=== PATIENT | female | born 1980 | race Caucasian/White ===

== ENCOUNTER → 2021-10-04 | Outpatient (CLI) | payer BC ==
--- NOTE | 2021-10-04 07:49 | US ---
EXAMINATION TYPE: US gallbladder DATE OF EXAM: 10/04/2021 COMPARISON: NONE CLINICAL HISTORY: R10.11 RUQ pain. RUQ pain and mild nausea EXAM MEASUREMENTS: Liver Length: 14.6 cm Gallbladder Wall: 0.2 cm CBD: 0.6 cm Right Kidney: 9.4 x 4.6 x 5.7 cm Pancreas: wnl Liver: wnl Gallbladder: fold seen, 1.3cm neck fold seen that moved slightly when rolled LLD Evidence for sonographic Alford's sign: no CBD: wnl Right Kidney: wnl IMPRESSION: No significant abnormality seen.
== END | disposition home or self-care (01) ==
LOC: RADUSWWP 07:05
PROVIDERS: ATTEND Internal Medicine Gastroenterology
DX: R10.11 Right upper quadrant pain (principal); R11.0 Nausea
CPT/HCPCS: 76705

== ENCOUNTER 2021-10-30 01:57 | Emergency (ER) | payer BC ==
[2021-10-30 02:02] VITALS: BP 124/65; PULSE 84; RESP 22; TEMP 97.6
[2021-10-30] MEDS ORDERED: HYDROmorphone 0.5 MG/0.5 ML SYRINGE IVP STA (02:19)
[2021-10-30] MEDS ORDERED: ONDANSETRON 4 MG/2 ML VIAL IVP STA (02:19)
[2021-10-30] MEDS ORDERED: SODIUM CHLORIDE 0.9% 1,000 ML IV STA (02:19)
[2021-10-30 03:06] LABS: Basophils % (A) 0 %; Eosinophils # (A) 0.1 k/uL (0-0.7); Eosinophils % (A) 2 %; HCT 39.6 % (34.0-46.0); HGB 13.3 gm/dL (11.4-16.0); Lymphocytes # (A) 1.8 k/uL (1.0-4.8); Lymphocytes % (A) 31 %; MCH 31.7 pg (25.0-35.0); MCHC 33.7 g/dL (31.0-37.0); Monocytes # (A) 0.4 k/uL (0-1.0); Monocytes % (A) 6 %; Neutrophils # (A) 3.3 k/uL (1.3-7.7); Neutrophils % (A) 57 %; Platelet Count 361 k/uL (150-450); RBC 4.21 m/uL (3.80-5.40); WBC 5.9 k/uL (3.8-10.6)
[2021-10-30 03:16] LABS: Potassium 3.7 mmol/L (3.5-5.1)
[2021-10-30 03:17] LABS: ALT 26 U/L (4-34); AST 26 U/L (14-36); African American GFR (CKD) >90 (>60 ml/min/1.73 sqM); Albumin 3.9 g/dL (3.5-5.0); Alkaline Phosphatase 85 U/L (38-126); Anion Gap 7 mmol/L; Blood Urea Nitrogen 18 mg/dL (7-17); Calcium 8.5 mg/dL (8.4-10.2); Carbon Dioxide 27 mmol/L (22-30); Chloride 105 mmol/L (98-107); Glucose 95 mg/dL (74-99); Lipase 143 U/L (23-300); Non-African American GFR(CKD) >90 (>60 ml/min/1.73 sqM); Sodium 139 mmol/L (137-145); Total Bilirubin 0.4 mg/dL (0.2-1.3)
[2021-10-30 03:21] LABS: Appearance,Urine Cloudy (Clear); Bilirubin,Urine Negative (Negative); Blood,Urine Large (Negative); Color,Urine Red; Glucose,Urine (UA) Negative (Negative); Ketones,Urine Trace (Negative); Leukocyte Esterase,Urine Small (Negative); Mucus,Urine Rare /hpf; Nitrite,Urine Negative (Negative); PH, Urine 6.5 (5.0-8.0); Protein,Urine 1+ (Negative); RBC,Urine >182 /hpf (0-5); Specific Gravity,Urine 1.025 (1.001-1.035); Squamous Epithelial Cell,Urine 6 /hpf (0-4); Urobilinogen,Urine <2.0 mg/dL (<2.0); WBC,Urine 23 /hpf (0-5)
[2021-10-30] MEDS ORDERED: ONDANSETRON 4 MG ODT STARTER PACK 2 TAB BTL PO STA (03:50)
[2021-10-30] MEDS ORDERED: IBUPROFEN 600 MG STARTER PACK 4 TAB BTL PO STA (03:50)
--- NOTE | 2021-10-30 03:56 | ED ---
General Adult HPI - General Chief complaint: Abdominal Pain Stated complaint: Abd Pain Time Seen by Provider: 10/30/21 02:11 Source: patient, RN notes reviewed Mode of arrival: ambulatory Limitations: no limitations - History of Present Illness Initial comments: 41-year-old female presents to the emergency Department with complaints of right upper quadrant pain. Patient states she has known gallbladder disease and is anxiously awaiting an appointment with her surgeon. States she had an ultrasound earlier this month showing an gallstone in the neck of the gallbladder. Reports adhering to a bland diet in effort to minimize aggravating factors. States she is taking her regular home medications as prescribed. Patient states she had a "gallbladder attack" this past in which she was miserable throughout the day, however, she was able to manage this discomfort at home. States the pain was more persistent and severe today so she came to the ER this evening. Reports mild nausea. Denies fever, chills, headache, chest pain, shortness of breath, difficulty breathing, constipation, diarrhea, and dysuria. Currently on her menstrual period. - Related Data Home Medications Medication Instructions Recorded Confirmed ALPRAZolam [Xanax] 0.25 mg PO TID PRN 10/09/21 10/09/21 Cholecalciferol [Vitamin D3 (25 25 mcg PO DIRECTED 10/09/21 10/09/21 Mcg = 1000 Iu)] Dextroamphetamine/Amphetamine 20 mg PO DAILY 10/09/21 10/09/21 [Adderall] Pantoprazole [Protonix] 40 mg PO AC-BID 10/09/21 10/09/21 Previous Rx's Medication Instructions Recorded Ibuprofen [Motrin] 600 mg PO Q8HR PRN #20 tab 10/30/21 Ondansetron Odt [Zofran Odt] 4 mg PO Q8HR PRN #10 tab 10/30/21 Allergies Allergy/AdvReac Type Severity Reaction Status Date / Time Penicillins Allergy Unknown siblings Verified 10/30/21 02:02 had severe anaphylactic reactions. Review of Systems ROS Statement: Those systems with pertinent positive or pertinent negative responses have been documented in the HPI. ROS Other: All systems not noted in ROS Statement are negative. Past Medical History Past Medical History: GERD/Reflux Additional Past Medical History / Comment(s): gallstones History of Any Multi-Drug Resistant Organisms: None Reported Past Surgical History: No Surgical Hx Reported Additional Past Surgical History / Comment(s): wisdom teeth Past Anesthesia/Blood Transfusion Reactions: Motion Sickness Additional Past Anesthesia/Blood Transfusion Reaction / Comment(s): no anesth esia hx Past Psychological History: ADD/ADHD, Anxiety Smoking Status: Former smoker Past Alcohol Use History: Occasional Past Drug Use History: None Reported - Past Family History Mother Family Medical History: No Reported History General Exam Limitations: no limitations General appearance: alert, anxious, other (Well-developed, well-nourished female complaining of moderate amount of discomfort. Initial temperature 97.6, pulse 84, respirations 22, blood pressure 124/65, pulse ox 100% on room air.) ENT exam: Present: mucous membranes moist Respiratory exam: Present: normal lung sounds bilaterally. Absent: respiratory distress, wheezes, rales, rhonchi, stridor Cardiovascular Exam: Present: regular rate, normal rhythm, normal heart sounds. Absent: systolic murmur, diastolic murmur, rubs, gallop, clicks GI/Abdominal exam: Present: soft, tenderness (epigastric and RUQ pain), normal bowel sounds. Absent: distended, guarding, rebound, rigid Back exam: Absent: CVA tenderness (R), CVA tenderness (L) Neurological exam: Present: alert, oriented X3 Psychiatric exam: Present: anxious Skin exam: Present: warm, dry, intact, normal color Course Vital Signs 10/30/21 01:58 Temperature 97.6 F Pulse Rate 84 Respiratory 22 Rate Blood Pressure 124/65 O2 Sat by Pulse 100 Oximetry - Reevaluation(s) Reevaluation #1: 10/30/21 03:30 Upon reevaluation, patient is resting more comfortably. States pain is minimal and nausea has resolved. Discussed discharge home to follow up with surgeon. Patient is frustrated with this process explaining that she does not want to leave until something more definitive is done to expedite the process of seeing the surgeon. I did explain that based on laboratory studies, patient is not a candidate for hospital admission. Instructed her to call her surgeon in the morning and explain her situation. Also suggested that she contact her GI doctor to see if they would be willing to facilitate this process. Patient is reluctantly agreeable with this plan. Medical Decision Making - Medical Decision Making 41-year-old female with a past medical history of ADHD and recent diagnosis of gallbladder disease presents to the emergency department for evaluation of epigastric and right upper quadrant pain. Upon exam, patient is nontoxic in appearance. She complains of right upper quadrant pain upon palpation of the abdomen is soft. She endorses nausea, but is not vomiting at this time. She reports adherence with bland diet and is frustrated by this exacerbation of pain. Laboratory studies were obtained and are unremarkable. Patient was given a liter of fluids, pain medication, and nausea medicine with improvement. We did discuss appropriate follow-up care. She will be discharged home with Syd and Graciela. Patient is frustrated by what she perceives as difficulty obtaining timely appointment with the surgeon. Suggested additional method by which to possibly expedite this process. Patient verbalizes understanding and reluctantly agrees with this plan. Attending: James. - Lab Data Result diagrams: 10/30/21 02:47 10/30/21 02:47 Lab Results 10/30/21 10/30/21 10/30/21 Range/Units 02:47 02:47 02:47 WBC 5.9 (3.8-10.6) k/uL RBC 4.21 (3.80-5.40) m/uL Hgb 13.3 (11.4-16.0) gm/dL Hct 39.6 (34.0-46.0) % MCV 94.0 (80.0-100.0) fL MCH 31.7 (25.0-35.0) pg MCHC 33.7 (31.0-37.0) g/dL RDW 13.0 (11.5-15.5) % Plt Count 361 (150-450) k/uL MPV 7.0 Neutrophils % 57 % Lymphocytes % 31 % Monocytes % 6 % Eosinophils % 2 % Basophils % 0 % Neutrophils # 3.3 (1.3-7.7) k/uL Lymphocytes # 1.8 (1.0-4.8) k/uL Monocytes # 0.4 (0-1.0) k/uL Eosinophils # 0.1 (0-0.7) k/uL Basophils # 0.0 (0-0.2) k/uL Sodium 139 (137-145) mmol/L Potassium 3.7 (3.5-5.1) mmol/L Chloride 105 (98-107) mmol/L Carbon Dioxide 27 (22-30) mmol/L Anion Gap 7 mmol/L BUN 18 H (7-17) mg/dL Creatinine 0.79 (0.52-1.04) mg/dL Est GFR (CKD-EPI)AfAm >90 (>60 ml/min/1.73 sqM) Est GFR (CKD-EPI)NonAf >90 (>60 ml/min/1.73 sqM) Glucose 95 (74-99) mg/dL Plasma Lactic Acid [place] (0.7-2.0) mmol/L Calcium 8.5 (8.4-10.2) mg/dL Total Bilirubin 0.4 (0.2-1.3) mg/dL AST 26 (14-36) U/L ALT 26 (4-34) U/L Alkaline Phosphatase 85 (38-126) U/L Total Protein 7.0 (6.3-8.2) g/dL Albumin 3.9 (3.5-5.0) g/dL Lipase 143 (23-300) U/L Urine Color Red Urine Appearance Cloudy H (Clear) Urine pH 6.5 (5.0-8.0) Ur Specific [place] 1.025 (1.001-1.035) Urine Protein 1+ H (Negative) Urine Glucose (UA) Negative (Negative) Urine Ketones Trace H (Negative) Urine Blood Large H (Negative) Urine Nitrite Negative (Negative) Urine Bilirubin Negative (Negative) Urine Urobilinogen <2.0 (<2.0) mg/dL Ur Leukocyte Esterase Small H (Negative) Urine RBC >182 H (0-5) /hpf Urine WBC 23 H (0-5) /hpf Ur Squamous Epith Cells 6 H (0-4) /hpf Urine Mucus Rare H (None) /hpf Urine HCG, Qual (Not Detectd) 10/30/21 10/30/21 Range/Units 02:47 02:47 WBC (3.8-10.6) k/uL RBC (3.80-5.40) m/uL Hgb (11.4-16.0) gm/dL Hct (34.0-46.0) % MCV (80.0-100.0) fL MCH (25.0-35.0) pg MCHC (31.0-37.0) g/dL RDW (11.5-15.5) % Plt Count (150-450) k/uL MPV Neutrophils % % Lymphocytes % % Monocytes % % Eosinophils % % Basophils % % Neutrophils # (1.3-7.7) k/uL Lymphocytes # (1.0-4.8) k/uL Monocytes # (0-1.0) k/uL Eosinophils # (0-0.7) k/uL Basophils # (0-0.2) k/uL Sodium (137-145) mmol/L Potassium (3.5-5.1) mmol/L Chloride (98-107) mmol/L Carbon Dioxide (22-30) mmol/L Anion Gap mmol/L BUN (7-17) mg/dL Creatinine (0.52-1.04) mg/dL Est GFR (CKD-EPI)AfAm (>60 ml/min/1.73 sqM) Est GFR (CKD-EPI)NonAf (>60 ml/min/1.73 sqM) Glucose (74-99) mg/dL Plasma Lactic Acid [place] 1.3 (0.7-2.0) mmol/L Calcium (8.4-10.2) mg/dL Total Bilirubin (0.2-1.3) mg/dL AST (14-36) U/L ALT (4-34) U/L Alkaline Phosphatase (38-126) U/L Total Protein (6.3-8.2) g/dL Albumin (3.5-5.0) g/dL Lipase (23-300) U/L Urine Color Urine Appearance (Clear) Urine pH (5.0-8.0) Ur Specific [place] (1.001-1.035) Urine Protein (Negative) Urine Glucose (UA) (Negative) Urine Ketones (Negative) Urine Blood (Negative) Urine Nitrite (Negative) Urine Bilirubin (Negative) Urine Urobilinogen (<2.0) mg/dL Ur Leukocyte Esterase (Negative) Urine RBC (0-5) /hpf Urine WBC (0-5) /hpf Ur Squamous Epith Cells (0-4) /hpf Urine Mucus (None) /hpf Urine HCG, Qual Not Detected (Not Detectd) Disposition Clinical Impression: Abdominal pain, Nausea Disposition: HOME SELF-CARE Condition: Stable Instructions (If sedation given, give patient instructions): Acute Nausea and Vomiting (ED), Abdominal Pain (ED) Additional Instructions: Take Zofran for nausea. Motrin for discomfort. Call your surgeon first thing in the morning to request an expedited a ppointment. If you do not hear back from your surgeon's office, contact Dr. Youngblood's office to help facilitate. Continue to avoid fatty, greasy, and spicy foods. Return to the emergency department with any new, worsening, or concerning symptoms. Prescriptions: Ibuprofen [Motrin] 600 mg PO Q8HR PRN #20 tab PRN Reason: Pain Ondansetron Odt [Zofran Odt] 4 mg PO Q8HR PRN #10 tab PRN Reason: Nausea Is patient prescribed a controlled substance at d/c from ED?: No Referrals: Micheline Valiente MD [Primary Care Provider] - 1-2 days Time of Disposition: 03:55
== END 2021-10-30 04:26 | disposition home or self-care (01) ==
LOC: EC 01:57
DX: R10.11 Right upper quadrant pain (principal); R11.0 Nausea; R10.13 Epigastric pain; K21.9 Gastro-esophageal reflux disease without esophagitis; F41.9 Anxiety disorder, unspecified; F90.9 Attention-deficit hyperactivity disorder, unspecified type; Z87.891 Personal history of nicotine dependence; Z79.899 Other long term (current) drug therapy
CPT/HCPCS: 36415; 80053; 83605; 83690; 85025; 81001; 81025; 87086; 99284; 96374; 96375; 96361 ×2; J2405; S0119; J1170

== ENCOUNTER 2022-07-24 19:51 | Inpatient (IN) | payer BC ==
[2022-07-24 20:32] LABS: Appearance,Urine Clear (Clear); Bilirubin,Urine Negative (Negative); Blood,Urine Negative (Negative); Color,Urine Colorless; Glucose,Urine (UA) Negative (Negative); Ketones,Urine Negative (Negative); Leukocyte Esterase,Urine Negative (Negative); Nitrite,Urine Negative (Negative); PH, Urine 6.5 (5.0-8.0); Protein,Urine Negative (Negative); Specific Gravity,Urine 1.004 (1.001-1.035); Urobilinogen,Urine <2.0 mg/dL (<2.0)
[2022-07-24 21:08] LABS: Amphetamine Screen,Urine Not Detected (NotDetected); Barbiturate Screen,Urine Not Detected (NotDetected); Benzodiazepines Screen,Urine Detected (NotDetected); Cocaine Screen,Urine Not Detected (NotDetected); Methadone Screen, Urine Not Detected (NotDetected); Opiate Screen,Urine Not Detected (NotDetected); Oxycodone Screen, Urine Not Detected (NotDetected); Phencyclidine Screen,Urine Not Detected (NotDetected); Tricyclic Antidepressant,Urine Not Detected (NotDetected); Urn Cannabinoid Scrn Not Detected (NotDetected)
[2022-07-25] MEDS ORDERED: MAG HYDROX/AL HYDROX/SIMETH 355 ML BOTTLE PO PRN (00:44)
[2022-07-25] MEDS ORDERED: MAGNESIUM HYDROXIDE 2,400 MG/10 ML CUP PO PRN (00:44)
[2022-07-25] MEDS ORDERED: LORazepam 2 MG/ML INJ IM PRN (00:46)
--- NOTE | 2022-07-25 01:06 | ED ---
Psych HPI - General Chief Complaint: Psychiatric Symptoms Stated Complaint: mental health Source: patient Mode of arrival: ambulatory - History of Present Illness Initial Comments: 42-year-old female past history of anxiety and depression presents emergency Department with suicidal ideations. States her left her 2 weeks ago and since then her depression has been worsening. She does not see a psychiatrist or therapist as she states that her insurance does not cover kind of appointments. She is treated for depression by her primary care physician who recently just placed her on Zoloft. She has yet to start taking it. She has been taking her Xanax. Today the patient drank 2 glasses of wine. Was feeling extremely depressed and therefore went into the bathroom and attempted to slit her wrist. States that she was interrupted by her daughter therefore brought herself into the emergency room for evaluation. Denies drug use. No concern for . Denies homicidal ideations or hallucinations. No other alleviating, precipitating or modifying factors - Related Data Home Medications Medication Instructions Recorded Confirmed Dextroamphetamine/Amphetamine 20 mg PO DAILY 10/09/21 07/25/22 [Adderall] ALPRAZolam [Xanax] 0.5 mg PO QID 07/24/22 07/25/22 Allergies Allergy/AdvReac Type Severity Reaction Status Date / Time Penicillins Allergy Unknown siblings Verified 07/25/22 00:20 had severe anaphylactic reactions. Review of Systems ROS Statement: Those systems with pertinent positive or pertinent negative responses have been documented in the HPI. ROS Other: All systems not noted in ROS Statement are negative. Past Medical History Past Medical History: GERD/Reflux Additional Past Medical History / Comment(s): gallstones, occ. migraines, History of Any Multi-Drug Resistant Organisms: None Reported Past Surgical History: No Surgical Hx Reported, Cholecystectomy Additional Past Surgical History / Comment(s): wisdom teeth Past Anesthesia/Blood Transfusion Reactions: Motion Sickness Additional Past Anesthesia/Blood Transfusion Reaction / Comment(s): . Smoking Status: Former smoker - Past Family History Mother Family Medical History: No Reported History General Exam Limitations: no limitations General appearance: alert, in no apparent distress Head exam: Present: atraumatic, normocephalic, normal inspection Eye exam: Present: normal appearance, PERRL, EOMI. Absent: scleral icterus, conjunctival injection, periorbital swelling ENT exam: Present: normal exam, mucous membranes moist Neck exam: Present: normal inspection. Absent: tenderness, meningismus, lymphad enopathy Respiratory exam: Present: normal lung sounds bilaterally. Absent: respiratory distress, wheezes, rales, rhonchi, stridor Cardiovascular Exam: Present: regular rate, normal rhythm, normal heart sounds. Absent: systolic murmur, diastolic murmur, rubs, gallop, clicks GI/Abdominal exam: Present: soft, normal bowel sounds. Absent: distended, tenderness, guarding, rebound, rigid Extremities exam: Present: normal inspection, full ROM, normal capillary refill. Absent: tenderness, pedal edema, joint swelling, calf tenderness Back exam: Present: normal inspection Neurological exam: Present: alert, oriented X3, CN II-XII intact Psychiatric exam: Present: depressed Skin exam: Present: warm, dry, normal color, abrasion (left inner wrist). Absent: rash Course Vital Signs 07/24/22 07/24/22 07/25/22 19:52 23:00 01:04 Temperature 97.7 F Pulse Rate 120 H Respiratory 20 18 16 Rate Blood Pressure 145/79 O2 Sat by Pulse 97 Oximetry Medical Decision Making - Medical Decision Making Upon arrival patient was placed into room 14. A thorough history and physical exam was performed. Patient is not intoxicated at this time. She did provide a urine sample. EPS evaluates the patient. Feels that the patient needs to be admitted at this time. She was agreeable to sign herself in. She is taken to the floor in stable condition - Lab Data Lab Results 07/24/22 07/24/22 07/24/22 Range/Units 20:12 20:12 23:25 Urine Color Colorless Urine Appearance Clear (Clear) Urine pH 6.5 (5.0-8.0) Ur Specific [place] 1.004 (1.001-1.035) Urine Protein Negative (Negative) Urine Glucose (UA) Negative (Negative) Urine Ketones Negative (Negative) Urine Blood Negative (Negative) Urine Nitrite Negative (Negative) Urine Bilirubin Negative (Negative) Urine Urobilinogen <2.0 (<2.0) mg/dL Ur Leukocyte Esterase Negative (Negative) Urine HCG, Qual Not Detected (Not Detectd) Urine Opiates Screen Not Detected (NotDetected) Ur Oxycodone Screen Not Detected (NotDetected) Urine Methadone Screen Not Detected (NotDetected) Ur Propoxyphene Screen Not Detected (NotDetected) Ur Barbiturates Screen Not Detected (NotDetected) U Tricyclic Antidepress Not Detected (NotDetected) Ur Phencyclidine Scrn Not Detected (NotDetected) Ur Amphetamines Screen Not Detected (NotDetected) U Methamphetamines Scrn Not Detected (NotDetected) U Benzodiazepines Scrn Detected H (NotDetected) Urine Cocaine Screen Not Detected (NotDetected) U Marijuana (THC) Screen Not Detected (NotDetected) Coronavirus (PCR) Not Detected (Not Detectd) Disposition Clinical Impression: Depression Disposition: TRANSFER TO PSYCH HOSP/UNIT Condition: Stable Is patient prescribed a controlled substance at d/c from ED?: No
[2022-07-25] MEDS: traZODone HCL 50 MG TAB PO SCH ×2 (02:02→20:46)
[2022-07-25] MEDS: NICOTINE 14MG/24HR PATCH TRANSDERM SCH (08:45)
[2022-07-25] MEDS ORDERED: SERTRALINE 25 MG TAB PO STA (12:05)
--- NOTE | 2022-07-25 12:40 | P.HP ---
Psychiatric H&P - . H&P Date: 07/25/22 History & Physical: Allergies Allergy/AdvReac Type Severity Reaction Status Date / Time Penicillins Allergy Unknown siblings Verified 07/25/22 00:20 had severe anaphylactic reactions. Vital Signs Temp 97.0 F L 07/25/22 01:29 Pulse 108 H 07/25/22 01:29 Resp 14 07/25/22 01:29 BP 122/70 07/25/22 01:29 Pulse Ox 99 07/25/22 01:29 FiO2 Intake & Output 07/24/22 07/25/22 07/25/22 18:59 06:59 18:59 Weight 70.08 kg Laboratory Last Values Urine Color Colorless 07/24/22 20:12 Urine Appearance Clear (Clear) 07/24/22 20:12 Urine pH 6.5 (5.0-8.0) 07/24/22 20:12 Ur Specific [place] 1.004 (1.001-1.035) 07/24/22 20:12 Urine Protein Negative (Negative) 07/24/22 20:12 Urine Glucose (UA) Negative (Negative) 07/24/22 20:12 Urine Ketones Negative (Negative) 07/24/22 20:12 Urine Blood Negative (Negative) 07/24/22 20:12 Urine Nitrite Negative (Negative) 07/24/22 20:12 Urine Bilirubin Negative (Negative) 07/24/22 20:12 Urine Urobilinogen <2.0 mg/dL (<2.0) 07/24/22 20:12 Ur Leukocyte Esterase Negative (Negative) 07/24/22 20:12 Urine HCG, Qual Not Detected (Not Detectd) 07/24/22 20:12 Urine Opiates Screen Not Detected (NotDetected) 07/24/22 20:12 Ur Oxycodone Screen Not Detected (NotDetected) 07/24/22 20:12 Urine Methadone Screen Not Detected (NotDetected) 07/24/22 20:12 Ur Propoxyphene Screen Not Detected (NotDetected) 07/24/22 20:12 Ur Barbiturates Screen Not Detected (NotDetected) 07/24/22 20:12 U Tricyclic Antidepress Not Detected (NotDetected) 07/24/22 20:12 Ur Phencyclidine Scrn Not Detected (NotDetected) 07/24/22 20:12 Ur Amphetamines Screen Not Detected (NotDetected) 07/24/22 20:12 U Methamphetamines Scrn Not Detected (NotDetected) 07/24/22 20:12 U Benzodiazepines Scrn Detected (NotDetected) H 07/24/22 20:12 Urine Cocaine Screen Not Detected (NotDetected) 07/24/22 20:12 U Marijuana (THC) Screen Not Detected (NotDetected) 07/24/22 20:12 Coronavirus (PCR) Not Detected (Not Detectd) 07/24/22 23:25 07/25/22 12:40 IDENTIFYING DATA: Patient is a , employed, 42 year old female who presented to the hospital on 07/24/2022 voluntarily for depression and suicidal ideation with an attempt at cutting her left wrist. HPI: Patient presented to the hospital on 07/24/2022, brought to the hospital by her self for depression and suicidal ideation. She reported an attempt at cutting her left wrist. As per EPS report, the patient was tearful throughout the assessment. She signed herself voluntarily onto the psychiatric unit. The patient reports she has been feeling depressed for the past year however she states her depressive symptoms have been worsening over the past 3 months culminating in her suicide attempt by cutting her wrist after a verbal argument with her . She reports that for the past year she has been experiencing anhedonia, apathy, decreased appetite, very poor sleep (2 hours per night for the past week), decreased hygiene and grooming, and suicidal ideation. She reports she has been suicidal for the past year but after the argument she attempted for the first time. She reports she attempted to cut her wrist and only has a very small superficial laceration on her wrist that she feels very embarassed about. In regards to other mood symptoms she denies any history of bipolar disorder. She reports no history or manic symptoms. She denies any history of psychosis. The patient also reports no significant history of trauma. She reports no suicide attempts prior to this attempt. She denies any history of self-mutilating behavior. PAST PSYCHIATRIC HISTORY: Patient states that she has not formal psychiatric diagnoses but is prescribed adderall and xanax by her nurse practitioner. Patient denies any previous psychiatric hospitalizations. Patient denies any psychiatric outpatient follow-up. Patient denies any history of suicide attempts in the past prior to this attempt. PMH: Past Medical History: GERD/Reflux Additional Past Medical History / Comment(s): gallstones, occ. migraines, History of Any Multi-Drug Resistant Organisms: None Reported Past Surgical History: No Surgical Hx Reported, Cholecystectomy Additional Past Surgical History / Comment(s): wisdom teeth Past Anesthesia/Blood Transfusion Reactions: Motion Sickness Additional Past Anesthesia/Blood Transfusion Reaction / Comment(s): . Smoking Status: Former smoker ALLERGIES: Penicillins CHEMICAL DEPENDENCY HISTORY: Patient reports she uses a vape pen daily. She denies any marijuana, alcohol or illicit drug use. FAMILY PSYCHIATRIC/SUBSTANCE USE HISTORY: Patient reports her maternal aunts are "crazy" however states none are formally diagnosed with psychiatric illness. SOCIAL HISTORY: Patient was born and raised in [place], [place]. She is for 11 years to her Elliott who is currently in [place]. She is uncertain whether they will be together or not. She lives with her and daughter and romeon. Patient reports no legal issues. She reports a Faith walter. She is employed and works in corporate payroll. She completed 3 years of college. MENTAL STATUS EXAM: General Appearance: Patient appears to be stated age is alert, directable, and attempts to cooperate. Patient appears to have slightly disheveled hygiene and grooming. Approximately 2 cm single laceration superficial on the left wrist. Behavior: Patient is seated without any agitated behavior. Eye contact is appropriate. Speech: Patient's speech is fluent and nonpressured. Mood/Affect: Patient reports their mood is "embarassed," affect is congruent and euthymic. Suicidality/Homicidality: Patient denies any suicidal or homicidal ideation. Perceptions: Patient denies any visual hallucinations and denies any auditory hallucinations Though content/process: There is no evidence of any delusional thought content and thought process is linear and goal-directed. Memory and concentration: AOX3, grossly intact for the purposes of this session. Can spell "WORLD" backwards Judgment and insight: Fair STRENGTHS/WEAKNESSES: Strength is the patient is gainfully employed and future oriented. Weakness is that the patient is undergoing marriage difficulties. INTELLECT: average IMPRESSIONS: Major Depressive Disorder, single episode, severe Nicotine Dependence PLAN: -Patient is admitted under voluntary status to MHU for stabilization of psychiatric symptoms and safety. Patient signed adult voluntary form and medication consent and is placed in patient's chart. A second certification was completed and along with petition will be filed for court. -Medications : Will start patient on Zoloft 75 mg daily for depression/anxiety Trazodone 75 mg at bedtime for insomnia -Ativan and Haldol PRN for agitation/aggression -Patient was counselled on substance abuse and desired to cut back on use -Patient was informed of the risks, benefits and side effects of the medication and patient verbally consented to taking the medications. Patient signed med consent form and was placed in chart. -Internal Medicine consult to perform medical evaluation and physical. -NRT - nicotine patch -SW on board for discharge planning. Encourage patient to participate in groups to work on coping skills. 07/25/22 12:40
[2022-07-25] MEDS: ACETAMINOPHEN TAB 325 MG TAB PO PRN (14:33)
[2022-07-25] MEDS: LORazepam 0.5 MG TAB PO PRN ×2 (15:33→22:38)
--- NOTE | 2022-07-26 03:09 | P.PN ---
Progress Note - Text Progress Note Date: 07/26/22 Attempted to see the patient in the mental health unit at 0100 on 07/26. Informed by the mental health unit RN that the patient was sleeping and refused to be seen or be evaluated.
[2022-07-26 06:49] VITALS: BP 95/56; PULSE 80; RESP 18; TEMP 97.8
[2022-07-26 07:40] LABS: Basophils % (A) 1 %; Eosinophils # (A) 0.2 k/uL (0-0.7); Eosinophils % (A) 3 %; HCT 40.2 % (34.0-46.0); HGB 13.6 gm/dL (11.4-16.0); Lymphocytes # (A) 2.1 k/uL (1.0-4.8); Lymphocytes % (A) 36 %; MCH 31.7 pg (25.0-35.0); MCHC 33.8 g/dL (31.0-37.0); MCV 93.8 fL (80.0-100.0); Monocytes # (A) 0.4 k/uL (0-1.0); Monocytes % (A) 6 %; Neutrophils % (A) 51 %; Platelet Count 302 k/uL (150-450); RBC 4.28 m/uL (3.80-5.40); RDW 12.2 % (11.5-15.5); WBC 5.9 k/uL (3.8-10.6)
[2022-07-26 08:23] LABS: ALT 60 U/L (4-34); AST 40 U/L (14-36); African American GFR (CKD) >90 (>60 ml/min/1.73 sqM); Albumin 4.1 g/dL (3.5-5.0); Alkaline Phosphatase 96 U/L (38-126); Anion Gap 6 mmol/L; Blood Urea Nitrogen 11 mg/dL (7-17); Calcium 8.8 mg/dL (8.4-10.2); Carbon Dioxide 30 mmol/L (22-30); Chloride 104 mmol/L (98-107); Glucose 119 mg/dL (74-99); Non-African American GFR(CKD) 87 (>60 ml/min/1.73 sqM); Potassium 4.1 mmol/L (3.5-5.1); Sodium 140 mmol/L (137-145); Total Bilirubin 0.5 mg/dL (0.2-1.3)
[2022-07-26] MEDS: NICOTINE 14MG/24HR PATCH TRANSDERM SCH (08:39)
[2022-07-26] MEDS: SERTRALINE 50 MG TAB PO SCH (08:39)
[2022-07-26] MEDS: ACETAMINOPHEN TAB 325 MG TAB PO PRN ×2 (10:36→20:12)
--- NOTE | 2022-07-26 11:00 | P.PN ---
Progress Note - Text Progress Note Date: 07/26/22 Interval History: Patient was seen attending group and was directable and agreeable to speak with automobile service writer in the office., The patient reported that she is feeling significantly better. She states that she was able to speak with her and that he returned from [place] and is currently back home. She reports that her informed her that he is willing to support her in whatever decision she makes. She is currently denying any suicidal or homicidal ideation, intention, and/or plan. She is not reporting any auditory or visual hallucinations. She denies any paranoia or other delusions. The patient reports that she is feeling well on this medication regimen. She remains future and goal oriented. She denies any medical issues or concerns. Mental Status Exam: General Appearance: Patient appears to be stated age is alert, directable, and cooperative. Behavior: Patient is calmly seated without any agitated behavior. Speech: Patient's speech is fluent and nonpressured. Mood/Affect: Mood is improving mildly, affect is congruent and bright. Suicidality/Homicidality: Patient denies having any suicidal or homicidal ideation intent or plan. Perceptions: Patient denies any visual hallucinations and denies any auditory hallucinations Though content/process: There is no evidence of any delusional thought content and thought process is linear and goal-directed. Memory and concentration: AOX3, grossly intact for the purposes of this session Judgment and insight: Improving mildly Vital Signs Temp 97.8 F 07/26/22 06:48 Pulse 80 07/26/22 06:48 Resp 18 07/26/22 06:48 BP 95/56 07/26/22 06:48 Pulse Ox 99 07/26/22 06:48 FiO2 Laboratory Results - Last 24 Hours 07/26/22 07/26/22 06:48 06:48 WBC 5.9 RBC 4.28 Hgb 13.6 Hct 40.2 MCV 93.8 MCH 31.7 MCHC 33.8 RDW 12.2 Plt Count 302 MPV 7.0 Neutrophils % 51 Lymphocytes % 36 Monocytes % 6 Eosinophils % 3 Basophils % 1 Neutrophils # 3.0 Lymphocytes # 2.1 Monocytes # 0.4 Eosinophils # 0.2 Basophils # 0.0 Sodium 140 Potassium 4.1 Chloride 104 Carbon Dioxide 30 Anion Gap 6 BUN 11 Creatinine 0.84 Est GFR (CKD-EPI)AfAm >90 Est GFR (CKD-EPI)NonAf 87 Glucose 119 H Calcium 8.8 Total Bilirubin 0.5 AST 40 H ALT 60 H Alkaline Phosphatase 96 Total Protein 7.0 Albumin 4.1 TSH 0.851 Assessment Major Depressive Disorder, single episode, severe Nicotine Dependence Plan: -Patient continues to meet criteria for inpatient psychiatric admission for symptom stabilization and safety. Patient has signed adult voluntary form and medication consent and was placed in patient's chart. -Medications: Increase Zoloft to 150 mg by mouth daily for depression/anxiety Increase trazodone to 100 mg daily at bedtime for insomnia -When necessary Ativan and Haldol for agitation/aggression. -NRT - nicotine patch -SW on board for discharge planning. Encouraged the patient to participate in milieu.
[2022-07-26] MEDS: LORazepam 0.5 MG TAB PO PRN ×2 (12:58→18:48)
[2022-07-26] MEDS ORDERED: MAG HYDROX/AL HYDROX/SIMETH 30 ML CUP PO PRN (16:52)
[2022-07-26] MEDS ORDERED: traZODone HCL 100 MG TAB PO SCH (21:00)
--- NOTE | 2022-07-27 03:08 | P.CONS ---
History of Present Illness - Reason for Consult Consult date: 07/27/22 - History of Present Illness The patient is a 42-year-old female with a PMH of anxiety and ADHD who had presented to the emergency room with complaints of depression and suicidal ideation. The patient reports that she has been undergoing a lot of stressors recently as her of several years recently left her and lost all contact. She denied any physical complaints at the time of interview. Denied experiencing chest discomfort, shortness of breath, fever, chills, cough, nausea, vomiting, abdominal pain, diarrhea. She reports vaping daily but denied illicit substance or alcohol use. Review of systems: Pertinent positives and negatives as discussed in HPI, a complete review of systems was performed and all other systems are negative. Physical examination: General: non toxic, no distress, appears at stated age, overweight Derm: no unusual rashes/lesions, no unusual ecchymoses, warm, dry Head: atraumatic, normocephalic, symmetric Eyes: EOMI, no lid lag, anicteric sclera ENT: Nose and ears atraumatic, no thrush, no pharyngeal erythema Neck: trachea midline, supple Mouth: no lip lesion, mucus membranes moist Cardiovascular: S1S2 reg, no murmur, no edema Lungs: CTA bilateral, no rhonchi, no rales , no accessory muscle use Abdominal: soft, nontender to palpation, no guarding Ext: no gross muscle atrophy, no contractures, Neuro: No gross focal neuro deficits noted Psych: Alert, oriented, appropriate affect Assessment/plan Abnormal LFTs -Unclear etiology -Obtain repeat LFTs in 48 hours -If persistently elevated, consider right upper quadrant ultrasound with hepatitis panel Vaping use -Strongly advised on the importance of cessation Depression with suicidal ideation -As per psychiatry Thank you for allowing us to participate in the care of this patient. We will follow peripherally. Do not hesitate to contact us with questions. Someone can be reached from the [facility] hospitalist group at all hours of the day at [phone]. Past Medical History Past Medical History: GERD/Reflux Additional Past Medical History / Comment(s): gallstones, occ. migraines, History of Any Multi-Drug Resistant Organisms: None Reported Past Surgical History: No Surgical Hx Reported, Cholecystectomy Additional Past Surgical History / Comment(s): wisdom teeth Past Anesthesia/Blood Transfusion Reactions: Motion Sickness Additional Past Anesthesia/Blood Transfusion Reaction / Comm: . Smoking Status: Former smoker - Past Family History Mother Family Medical History: COPD Medications and Allergies Home Medications Medication Instructions Recorded Confirmed Type Dextroamphetamine/Amphetamine 20 mg PO DAILY 10/09/21 07/25/22 History [Adderall] ALPRAZolam [Xanax] 0.5 mg PO QID 07/24/22 07/25/22 History Allergies Allergy/AdvReac Type Severity Reaction Status Date / Time Penicillins Allergy Unknown siblings Verified 07/25/22 00:20 had severe anaphylactic reactions. Physical Exam Vitals: Vital Signs Temp Pulse Resp BP Pulse Ox 07/26/22 06:48 97.8 F 80 18 95/56 99 Results CBC & Chem 7: 07/26/22 06:48 07/26/22 06:48 Labs: Abnormal Lab Results - Last 24 Hours (Table) 07/26/22 Range/Units 06:48 Glucose 119 H (74-99) mg/dL AST 40 H (14-36) U/L ALT 60 H (4-34) U/L
[2022-07-27] MEDS: SERTRALINE 50 MG TAB PO SCH (08:09)
[2022-07-27] MEDS: NICOTINE 14MG/24HR PATCH TRANSDERM SCH (08:09)
[2022-07-27] MEDS: ACETAMINOPHEN TAB 325 MG TAB PO PRN (10:09)
--- NOTE | 2022-07-27 11:41 | P.DS ---
Providers Date of admission: 07/25/22 00:20 Expected date of discharge: 07/27/22 Attending physician: Bo Turpin MD Consults: 07/25/22 00:44 Consult Physician Routine Consulting Provider: Lon Saxena Consult Reason/Comments: H&P and medical Do you want consulting provider notified?: Yes Primary care physician: Micheline Valiente - Discharge Diagnosis(es) (1) Major depressive disorder, single episode, severe with anxious distress Current Visit: Yes Status: Acute Priority: High (2) Nicotine dependence Current Visit: Yes Status: Chronic Priority: Medium Hospital Course: Admission HPI: Patient is a , employed, 42 year old female who presented to the hospital on 07/24/2022 voluntarily for depression and suicidal ideation with an attempt at cutting her left wrist. HPI: Patient presented to the hospital on 07/24/2022, brought to the hospital by her self for depression and suicidal ideation. She reported an attempt at cutting her left wrist. As per EPS report, the patient was tearful throughout the assessment. She signed herself voluntarily onto the psychiatric unit. The patient reports she has been feeling depressed for the past year however she states her depressive symptoms have been worsening over the past 3 months culminating in her suicide attempt by cutting her wrist after a verbal argument with her . She reports that for the past year she has been experiencing anhedonia, apathy, decreased appetite, very poor sleep (2 hours per night for the past week), decreased hygiene and grooming, and suicidal ideation. She reports she has been suicidal for the past year but after the argument she attempted for the first time. She reports she attempted to cut her wrist and only has a very small superficial laceration on her wrist that she feels very embarassed about. In regards to other mood symptoms she denies any history of bipolar disorder. She reports no history or manic symptoms. She denies any history of psychosis. The patient also reports no significant history of trauma. She reports no suicide attempts prior to this attempt. She denies any history of self-mutilating behavior. PAST PSYCHIATRIC HISTORY: Patient states that she has not formal psychiatric diagnoses but is prescribed adderall and xanax by her nurse practitioner. Patient denies any previous psychiatric hospitalizations. Patient denies any psychiatric outpatient follow-up. Patient denies any history of suicide attempts in the past prior to this attempt. Hospital course: Upon admission to the unit patient was initially worsening depression, embarrassment, and anxiety. Patient was however directable and agreeable to commence treatment. Patient got along well with other patients on the unit and followed unit protocol. Patient was compliant with the medications and denied any side effects throughout hospital course. Patient was started on Zoloft for management of depression and trazodone for insomnia. Patient spoke of her stressors and engaged in therapy both group and individual. Patient was also seen by medical team for history and physical exam. Over the course of the hospital physician, the patient displayed significant improvement in regards to her mood, sleep, and future in goal orientation. She reports that she was able to have a discussion with her and they have started to work things out. She became more future and goal oriented. She tolerated her medications well as they were titrated. On the day of discharge patient denied any suicidal or homicidal ideation, intention, and/or plan. She reported no auditory or visual hallucinations. Patient endorsed wanting to live for his health and family. The patient denied any access to guns or weapons. Patient denied any paranoia and did not endorse any delusions. Patient does not have a significant history of substance abuse however was counseled on abstaining from all substances including alcohol and marijuana. Patient was also counseled on the medications and need for regular compliance and was encouraged to follow-up with their outpatient appointment for mental health and also for primary care. Prior to discharge a family meeting will be arranged by social services manager to answer any questions and ensure safety upon discharge. Mental status exam: General Appearance: Patient appears to be stated age is alert, pleasant, and cooperative. Patient is in no acute distress and has fair hygiene and grooming Behavior: Patient is calmly seated without any agitated behavior. Speech: Patient's speech is fluent and nonpressured. Mood/Affect: Patient reports their mood is "much better", affect is congruent and euthymic to bright. Suicidality/Homicidality: Patient denies having any suicidal or homicidal ideation intent or plan. Perceptions: Patient denies any auditory or visual hallucinations. Though content/process: There is no evidence of any delusional thought content and thought process is linear and goal-directed. She is future oriented Memory and concentration: AOX3, grossly intact for the purposes of this session. Can spell "WORLD" backwards correctly. Judgment and insight: Improved Impression: Major Depressive Disorder, single episode, severe Nicotine Dependence Plan: -Continue with discharge today as patient has improved and stabilized psychiatrically and is not currently an imminent threat to herself and/or others. Patient will remain at chronically elevated risk due to a prior attempt at suicide. -Continue medications: Zoloft 150 mg by mouth daily for depression/anxiety Trazodone 100 mg by mouth at bedtime for depression/insomnia -Patient was counseled on the need for medication compliance and appropriate follow-up at mental health and also primary care for medical issues. Patient verbalized understanding and agreed. -Social work to arrange for and conduct family meeting to ensure safety upon discharge and answer any questions/concerns. Social work also to arrange for p atients follow up appointments with [facility] for psychiatric care along with follow up with primary care provider. -Patient counseled on abstaining from recreational drugs and marijuana and alcohol. Was informed/educated on the adverse effects on their physical and mental health. Patient verbally agreed and understood. -Patient was instructed to return to the hospital or seek immediate medical care if their psychiatric or medical symptoms do worsen or reoccur. -Psychoeducation and supportive therapy provided to patient. Risks and benefits of pharmacological treatment versus the risks and benefits of nontreatment weight and discussed. Informed consent discussion held. Common side effects of psychotropics discussed such as, but not limited to headache, GI disturbance, sexual dysfunction, movement disorders, sedation, and orthostatic hypotension. Life threatening and blackbox warnings of prescribed medications also discussed. Potential risks of operating a vehicle or heavy machinery discussed with patient at length. Advised on importance of compliance and a reliable and responsible manner. Patient advised to review FDA consumer labeling of all medications prior to taking. Patient verbalized understanding of potential risks, and agrees with current treatment plan. Patient advised to medically contact physician/emergency personnel if any acute changes in condition occur. Vital Signs Temp 97.8 F 07/26/22 06:48 Pulse 80 07/26/22 06:48 Resp 18 07/26/22 06:48 BP 95/56 07/26/22 06:48 Pulse Ox 99 07/26/22 06:48 FiO2 Laboratory Results WBC 5.9 k/uL (3.8-10.6) 07/26/22 06:48 RBC 4.28 m/uL (3.80-5.40) 07/26/22 06:48 Hgb 13.6 gm/dL (11.4-16.0) 07/26/22 06:48 Hct 40.2 % (34.0-46.0) 07/26/22 06:48 MCV 93.8 fL (80.0-100.0) 07/26/22 06:48 MCH 31.7 pg (25.0-35.0) 07/26/22 06:48 MCHC 33.8 g/dL (31.0-37.0) 07/26/22 06:48 RDW 12.2 % (11.5-15.5) 07/26/22 06:48 Plt Count 302 k/uL (150-450) 07/26/22 06:48 MPV 7.0 07/26/22 06:48 Neutrophils % 51 % 07/26/22 06:48 Lymphocytes % 36 % 07/26/22 06:48 Monocytes % 6 % 07/26/22 06:48 Eosinophils % 3 % 07/26/22 06:48 Basophils % 1 % 07/26/22 06:48 Neutrophils # 3.0 k/uL (1.3-7.7) 07/26/22 06:48 Lymphocytes # 2.1 k/uL (1.0-4.8) 07/26/22 06:48 Monocytes # 0.4 k/uL (0-1.0) 07/26/22 06:48 Eosinophils # 0.2 k/uL (0-0.7) 07/26/22 06:48 Basophils # 0.0 k/uL (0-0.2) 07/26/22 06:48 Sodium 140 mmol/L (137-145) 07/26/22 06:48 Potassium 4.1 mmol/L (3.5-5.1) 07/26/22 06:48 Chloride 104 mmol/L (98-107) 07/26/22 06:48 Carbon Dioxide 30 mmol/L (22-30) 07/26/22 06:48 Anion Gap 6 mmol/L 07/26/22 06:48 BUN 11 mg/dL (7-17) 07/26/22 06:48 Creatinine 0.84 mg/dL (0.52-1.04) 07/26/22 06:48 Est GFR (CKD-EPI)AfAm >90 (>60 ml/min/1.73 sqM) 07/26/22 06:48 Est GFR (CKD-EPI)NonAf 87 (>60 ml/min/1.73 sqM) 07/26/22 06:48 Glucose 119 mg/dL (74-99) H 07/26/22 06:[address] Glu mg/dL 110 07/26/22 06:48 Hemoglobin A1c 5.5 % (0.0-6.0) 07/26/22 06:48 Calcium 8.8 mg/dL (8.4-10.2) 07/26/22 06:48 Total Bilirubin 0.5 mg/dL (0.2-1.3) 07/26/22 06:48 AST 40 U/L (14-36) H 07/26/22 06:48 ALT 60 U/L (4-34) H 07/26/22 06:48 Alkaline Phosphatase 96 U/L (38-126) 07/26/22 06:48 Total Protein 7.0 g/dL (6.3-8.2) 07/26/22 06:48 Albumin 4.1 g/dL (3.5-5.0) 07/26/22 06:48 TSH 0.851 mIU/L (0.465-4.680) 07/26/22 06:48 Urine Color Colorless 07/24/22 20:12 Urine Appearance Clear (Clear) 07/24/22 20:12 Urine pH 6.5 (5.0-8.0) 07/24/22 20:12 Ur Specific Beryl 1.004 (1.001-1.035) 07/24/22 20:12 Urine Protein Negative (Negative) 07/24/22 20:12 Urine Glucose (UA) Negative (Negative) 07/24/22 20:12 Urine Ketones Negative (Negative) 07/24/22 20:12 Urine Blood Negative (Negative) 07/24/22 20:12 Urine Nitrite Negative (Negative) 07/24/22 20:12 Urine Bilirubin Negative (Negative) 07/24/22 20:12 Urine Urobilinogen <2.0 mg/dL (<2.0) 07/24/22 20:12 Ur Leukocyte Esterase Negative (Negative) 07/24/22 20:12 Urine HCG, Qual Not Detected (Not Detectd) 07/24/22 20:12 Urine Opiates Screen Not Detected (NotDetected) 07/24/22 20:12 Ur Oxycodone Screen Not Detected (NotDetected) 07/24/22 20:12 Urine Methadone Screen Not Detected (NotDetected) 07/24/22 20:12 Ur Propoxyphene Screen Not Detected (NotDetected) 07/24/22 20:12 Ur Barbiturates Screen Not Detected (NotDetected) 07/24/22 20:12 U Tricyclic Antidepress Not Detected (NotDetected) 07/24/22 20:12 Ur Phencyclidine Scrn Not Detected (NotDetected) 07/24/22 20:12 Ur Amphetamines Screen Not Detected (NotDetected) 07/24/22 20:12 U Methamphetamines Scrn Not Detected (NotDetected) 07/24/22 20:12 U Benzodiazepines Scrn Detected (NotDetected) H 07/24/22 20:12 Urine Cocaine Screen Not Detected (NotDetected) 07/24/22 20:12 U Marijuana (THC) Screen Not Detected (NotDetected) 07/24/22 20:12 Coronavirus (PCR) Not Detected (Not Detectd) 07/24/22 23:25 Allergies Allergy/AdvReac Type Severity Reaction Status Date / Time Penicillins Allergy Unknown siblings Verified 07/25/22 00:20 had severe anaphylactic reactions. Patient Condition at Discharge: Stable Plan - Discharge Summary New Discharge Prescriptions: New traZODone HCL [Desyrel] 100 mg PO HS 30 Days tab Sertraline [Zoloft] 150 mg PO DAILY 30 Days tab Discontinued Dextroamphetamine/Amphetamine [Adderall] 20 mg PO DAILY ALPRAZolam [Xanax] 0.5 mg PO QID Discharge Medication List Sertraline [Zoloft] 150 mg PO DAILY 30 Days tab 07/27/22 [Rx] traZODone HCL [Desyrel] 100 mg PO HS 30 Days tab 07/27/22 [Rx] Follow up Appointment(s)/Referral(s): [facility] [Outside] - 08/01/22 12:30 pm (with Keren) Micheline Valiente MD [Primary Care Provider] - 1 Week Patient Instructions/Handouts: Depression (DC), Help Prevent Suicide (DC) Activity/Diet/Wound Care/Special Instructions: Avoid the use of street drugs and alcohol. Take all prescriptions as prescribed. When you are in need of refills on your medications, please contact your medical provider and/or outpatient psychiatrist to have this done. Please go to scheduled outpatient appointment for aftercare treatment. If symptoms return or become worse, call the crisis line at and/or go to the nearest emergency room for evaluation Discharge Disposition: HOME SELF-CARE
[2022-07-27 13:57] LABS: Chol/HDL Ratio 4.46 Ratio; LDL Cholesterol,Calculated 129.5 mg/dL (0.0-131.0)
== END 2022-07-27 11:49 | disposition home or self-care (01) | DRG 885 ==
LOC: EC 19:51 → 3MHU 07-25 00:20
PROVIDERS: ADMIT Psychiatry & Neurology Psychiatry; ATTEND Psychiatry & Neurology Psychiatry
DX: F32.2 Major depressive disorder, single episode, severe without psychotic features (principal); F41.9 Anxiety disorder, unspecified; X78.9XXA Intentional self-harm by unspecified sharp object, initial encounter; S61.512A Laceration without foreign body of left wrist, initial encounter; Z20.822 Contact with and (suspected) exposure to COVID-19; Z28.310 Unvaccinated for COVID-19; F90.9 Attention-deficit hyperactivity disorder, unspecified type; K21.9 Gastro-esophageal reflux disease without esophagitis; G47.00 Insomnia, unspecified; R79.89 Other specified abnormal findings of blood chemistry; Z79.899 Other long term (current) drug therapy; Z87.891 Personal history of nicotine dependence; Z71.6 Tobacco abuse counseling; Z63.5 Disruption of family by separation and divorce; Z71.41 Alcohol abuse counseling and surveillance of alcoholic; Z71.51 Drug abuse counseling and surveillance of drug abuser; Z88.0 Allergy status to penicillin
CPT/HCPCS: 80053; 80061; 80306; 81003; 81025; 82075; 83036; 84443; 85025; 87635; 99285